=== PATIENT | female | born 1975 | race Caucasian/White ===

== ENCOUNTER 2017-03-25 03:07 | Emergency (ER) | payer MEDICARE ==
[2017-03-25] MEDS ORDERED: PEPCID IV ONE (04:16)
[2017-03-25] MEDS ORDERED: BENADRYL IV ONE (04:16)
[2017-03-25] MEDS ORDERED: NACL 0.9% 1000 ML 1,000 ML IV ONE (04:23)
--- NOTE | 2017-03-25 04:23 | Emergency Department Report ---
ED Allergic Reaction HPI - General Chief complaint: Allergic Reaction Stated complaint: N/V; URI SX Time Seen by Provider: 03/25/17 04:22 Source: patient Mode of arrival: Ambulatory Limitations: No Limitations - History of Present Illness Initial Comments: 41 YO FEMALE ALERGIC TO FISH ATE SOME CHICKEN THAT WAS FRIED IN THE SAME OIL FISH. SHE IS HERE WITH A C/O ITCHING,HIVES THAT BEGAN AFTER EATING CHICKEN. SHE ADMIST TO SOB,NAUSEA, VOMITING, COUGHING, AND FEELING HOT. MD Complaint: allergic reaction -: Sudden Exposure: food (CHICKEN FRIED INFISH OIL) Severity: moderate Treatment Prior to Arrival: none - Related Data Home Medications Medication Instructions Recorded Confirmed Last Taken Doxepin [SINEquan] 100 mg PO QHS 03/06/15 04/05/15 04/04/15 OXcarbazepine [Oxtellar XR] 600 mg PO QDAY 03/06/15 04/05/15 04/04/15 Quetiapine Fumarate [QUEtiapine 400 mg PO QDAY 03/06/15 04/05/15 04/04/15 Fumarate] buPROPion XL [Wellbutrin Xl] 300 mg PO QAM 03/06/15 04/05/15 04/04/15 traZODone [Desyrel] 100 mg PO QHS 03/06/15 04/05/15 04/04/15 Previous Rx's Medication Instructions Recorded Last Taken Type Dexamethasone [Decadron] 20 mg PO ONCE #1 tablet 03/25/17 Unknown Rx Ranitidine HCl [Zantac 150 MG TAB] 150 mg PO BID #14 tablet 03/25/17 Unknown Rx Allergies Allergy/AdvReac Type Severity Reaction Status Date / Time aloe vera Allergy Hives Verified 06/13/14 14:57 cinnamon [Cinnamon] Allergy Hives Verified 06/13/14 14:57 honey Allergy Anaphylaxis Verified 06/13/14 14:57 peanut Allergy Anaphylaxis Verified 06/13/14 14:57 promethazine HCl Allergy Unknown Verified 06/13/14 14:57 [From Phenergan] Sulfa (Sulfonamide Allergy Unknown Verified 06/13/14 14:57 Antibiotics) tetracycline [Tetracycline] Allergy Hives Verified 06/13/14 14:57 tree nut [Tree Nut] Allergy Anaphylaxis Verified 06/13/14 14:57 Penicillins AdvReac Anaphylaxis Verified 06/13/14 14:57 seafood Allergy Anaphylaxis Uncoded 06/13/14 14:57 ED Review of Systems ROS: Stated complaint: N/V; URI SX Other details as noted in HPI Constitutional: denies: chills, fever Eyes: denies: eye pain, eye discharge, vision change ENT: denies: ear pain, throat pain Respiratory: denies: cough, shortness of breath, wheezing Cardiovascular: denies: chest pain, palpitations Endocrine: no symptoms reported Gastrointestinal: nausea, vomiting. denies: abdominal pain, diarrhea Genitourinary: denies: urgency, dysuria, discharge Musculoskeletal: denies: back pain, joint swelling, arthralgia Skin: denies: rash, lesions Neurological: denies: headache, weakness, paresthesias Psychiatric: denies: anxiety, depression Hematological/Lymphatic: denies: easy bleeding, easy bruising ED Past Medical Hx - Past Medical History Previous Medical History?: Yes Hx Headaches / Migraines: Yes Hx Psychiatric Treatment: Yes (PTSD, depression, bipolar, schizophrenia) Hx Asthma: Yes Additional medical history: Hypothyroidism. Pt legally blind, OCCULAR ROSACIA, BLADDER PROBLEMS? - Surgical History Past Surgical History?: Yes Hx Cholecystectomy: Yes Additional Surgical History: Left knee surgery, ectopic - Social History Smoking Status: Current Every Day Smoker Substance Use Type: None - Medications Home Medications: Home Medications Medication Instructions Recorded Confirmed Last Taken Type Doxepin [SINEquan] 100 mg PO QHS 03/06/15 04/05/15 04/04/15 History OXcarbazepine [Oxtellar XR] 600 mg PO QDAY 03/06/15 04/05/15 04/04/15 History Quetiapine Fumarate [QUEtiapine 400 mg PO QDAY 03/06/15 04/05/15 04/04/15 History Fumarate] buPROPion XL [Wellbutrin Xl] 300 mg PO QAM 03/06/15 04/05/15 04/04/15 History traZODone [Desyrel] 100 mg PO QHS 03/06/15 04/05/15 04/04/15 History Dexamethasone [Decadron] 20 mg PO ONCE #1 tablet 03/25/17 Unknown Rx Ranitidine HCl [Zantac 150 MG TAB] 150 mg PO BID #14 tablet 03/25/17 Unknown Rx ED Physical Exam - General Limitations: No Limitations General appearance: alert, in no apparent distress - Head Head exam: Present: atraumatic, normocephalic - Eye Eye exam: Present: normal appearance, EOMI - ENT ENT exam: Present: mucous membranes moist - Neck Neck exam: Present: normal inspection - Respiratory Respiratory exam: Present: normal lung sounds bilaterally. Absent: respiratory distress - Cardiovascular Cardiovascular Exam: Present: regular rate, normal rhythm. Absent: systolic murmur, diastolic murmur, rubs, gallop - GI/Abdominal GI/Abdominal exam: Present: soft, normal bowel sounds - Extremities Exam Extremities exam: Present: normal inspection - Back Exam Back exam: Present: normal inspection, full ROM - Neurological Exam Neurological exam: Present: alert, oriented X3, CN II-XII intact - Psychiatric Psychiatric exam: Present: normal affect, normal mood - Skin Skin exam: Present: warm, dry, intact, normal color, rash (ON CHEEKS) ED Course Vital Signs 03/25/17 03/25/17 03/25/17 03:44 04:10 05:30 Temperature 98.6 F 98.8 F Pulse Rate 84 79 Respiratory 22 24 Rate Blood Pressure 154/102 149/86 Blood Pressure 178/87 [Left] O2 Sat by Pulse 96 99 95 Oximetry - Reevaluation(s) Reevaluation #1: 03/25/17 06:51 ALL SYMPTOMS RESOLVED AND PT WANT TO GO HOME. Critical care attestation.: If time is entered above; I have spent that time in minutes in the direct care of this critically ill patient, excluding procedure time. ED Disposition Clinical Impression: Urticaria due to food allergy Disposition: DC-01 TO HOME OR SELFCARE Is pt being admited?: No Does the pt Need Aspirin: No Condition: Stable Instructions: Urticaria (ED) Additional Instructions: PLEASE SPEAK TO THE FACILITY ABOUT NOT FRYING FISH IN THE SAME OIL CHICKEN AND ABOUT ANY OTHER ALLERGIES. RETURN IF YOUR SYMPTOMS WORSEN OR IF SHORT OF BREATH OR FOR ANY REASON Prescriptions: Dexamethasone [Decadron] 20 mg PO ONCE #1 tablet Ranitidine HCl [Zantac 150 MG TAB] 150 mg PO BID #14 tablet Referrals: JOSE MANUEL BELTRAN MD [Primary Care Provider] - 3-5 Days Time of Disposition: 06:51
[2017-03-25 05:35] VITALS: BP 149/86
== END 2017-03-25 07:13 | disposition home or self-care (01) ==
LOC: ED 03:07
DX: L50.0 Allergic urticaria (principal); G43.909 Migraine, unspecified, not intractable, without status migrainosus; F31.9 Bipolar disorder, unspecified; F43.10 Post-traumatic stress disorder, unspecified; E03.9 Hypothyroidism, unspecified; F20.9 Schizophrenia, unspecified; J45.909 Unspecified asthma, uncomplicated; F17.200 Nicotine dependence, unspecified, uncomplicated; Z90.49 Acquired absence of other specified parts of digestive tract
CPT/HCPCS: 96361; 96374; 96375; 99282; J1200; J2930; J7030